=== PATIENT | female | born 1985 | race Two or more races ===

== ENCOUNTER 2024-09-21 11:38 | Emergency (ER) | payer OTHER ==
[~2024-09-21] VITALS: Ht 165.1 cm
[2024-09-21 14:45] LABS: HEMATOCRIT 38.1 % (36.0-45.00); HEMOGLOBIN 12.7 g/dL (12.0-15.00); MEAN CELL VOLUME 91.1 fL (80.00-100.00); MEAN CORPUSCULAR HEMOGLOBIN 30.5 pg (27.00-32.0); MEAN CORPUSCULAR HGB CONC 33.4 g/dl (32.0-36.0); PLATELET COUNT 210 K/uL (150-450); RED BLOOD COUNT 4.18 M/uL (4.00-6.00); RED CELL DISTRIBUTION WIDTH 13.4 % (11.5-14.5)
[2024-09-21 15:00] LABS: URINE APPEARANCE Clear; URINE BILIRRUBIN Negative (NEGATIVE); URINE BLOOD Negative; URINE COLOR Yellow; URINE GLUCOSE Negative (NEGATIVE); URINE LEUKOCYTE Negative; URINE NITRATE Negative; URINE PROTEIN Negative (NEGATIVE); URINE UROBILINOGEN 0.2 E.U./dl
[2024-09-21 15:06] LABS: CALCIUM 9.2 mg/dL (8.5-10.1); CREATININE SERUM 0.57 mg/dL (0.55-1.02); GFR 117.47; POTASSIUM 4.06 mEq/L (3.5-5.1)
[2024-09-21 15:12] LABS: URINE BACTERIA 868.7 uL (0.0-1933); URINE EPITHELIAL CELLS 10.2 uL (0.0-38.8); URINE RBC 5.4 uL (0.0-20.8)
[2024-09-21 15:13] LABS: URINE KETONE 40 (NEGATIVE); URINE WBC 1.4 uL (0.0-23.2)
[2024-09-21] MEDS ORDERED: KETO10TA2 PO (16:42)
[2024-09-21] MEDS ORDERED: PEPCID AC20 MG PO (16:42)
== END 2024-09-21 16:46 | disposition home or self-care (01) ==
LOC: ER 11:41
PROVIDERS: Emergency Medicine
DX: R10.31 Right lower quadrant pain (principal); N28.1 Cyst of kidney, acquired